=== PATIENT | male | born 1950 | race Caucasian/White ===

== ENCOUNTER 2019-07-08 22:29 | Emergency (ER) | payer MEDICARE ==
[~2019-07-08] VITALS: Ht 170.2 cm; Wt 108.9 kg
[~2019-07-08 22:29] MED LIST: ALLER-FEX180 MG PO; Diclofenac Pota50 MG PO; Flomax0.4 MG PO; LOW DOSE ASPIRI81 MG PO; Lovastatin20 MG PO; SILD25T PO; VALACYCLOVIR500 MG PO
== END 2019-07-08 23:37 | disposition home or self-care (01) ==
LOC: ER 22:29
DX: R33.9 Retention of urine, unspecified (principal)
CPT/HCPCS: 51702; 99283-25

== ENCOUNTER 2020-08-02 08:03 | Day surgery (SDC) | payer MEDICARE ==
[~2020-08-02] VITALS: Ht 170.2 cm; Wt 102.8 kg
[2020-08-02] MEDS ORDERED: CEPH250A (08:18)
== END 2020-08-02 09:53 | disposition home or self-care (01) ==
LOC: ORSCSDS 08:03
DX: Z12.11 Encounter for screening for malignant neoplasm of colon (principal); Z86.010 Personal history of colon polyps; D12.0 Benign neoplasm of cecum; D12.2 Benign neoplasm of ascending colon; D12.3 Benign neoplasm of transverse colon; K64.8 Other hemorrhoids; Z79.899 Other long term (current) drug therapy; Z79.82 Long term (current) use of aspirin
CPT/HCPCS: 88305; J2704; J7120

== ENCOUNTER → 2020-11-07 | Outpatient (CLI) | payer MEDICARE ==
[~2020-11-07] MED LIST changes: +CEPH250A; +REVATIO20 MG PO; -SILD25T PO
== END | disposition home or self-care (01) ==
LOC: LAB SHORT 17:30 → LAB 17:30
DX: R35.0 Frequency of micturition (principal); R39.15 Urgency of urination; R30.0 Dysuria
CPT/HCPCS: 87086

== ENCOUNTER 2021-04-06 05:59 | Emergency (ER) | payer MEDICARE ==
[~2021-04-06] VITALS: Ht 170.2 cm; Wt 104.3 kg
[2021-04-06 06:52] LABS: Source, Urine Catheter
[2021-04-06 07:06] LABS: Appearance, Urine Clear (Clear); Bilirubin, Urine Neg (Neg); Blood, Urine 1+ (Neg); Color, Urine Yellow (P-Yellow); Glucose Qualitative, Urine Neg (Neg); Ketones, Urine Neg (Neg); Leukocyte Esterase, Urine Neg (Neg); Nitrite, Urine Neg (Neg); Protein, Urine Neg (Neg); Urobilinogen, Urine NORM (Normal)
[2021-04-06 07:16] LABS: Bacteria Not Seen /hpf; Red Blood Cells, Urine 0-2 /hpf (0-2); Squamous Epithelial Cells Not Seen /hpf (Few); White Blood Cells, Urine Not Seen /hpf (0-5)
== END 2021-04-06 08:53 | disposition home or self-care (01) ==
LOC: ER 05:59
PROVIDERS: Emergency Medicine
DX: R33.9 Retention of urine, unspecified (principal)
CPT/HCPCS: 51702; 81001; 99283-25

== ENCOUNTER 2021-04-11 03:21 | Emergency (ER) | payer MEDICARE ==
[~2021-04-11] VITALS: Ht 170.2 cm; Wt 101.2 kg
[2021-04-11 04:45] LABS: Source, Urine Catheter
[2021-04-11 04:47] LABS: Bilirubin, Urine Neg (Neg); Blood, Urine 1+ (Neg); Glucose Qualitative, Urine Neg (Neg); Ketones, Urine Neg (Neg); Leukocyte Esterase, Urine Neg (Neg); Nitrite, Urine Neg (Neg); Protein, Urine Neg (Neg); Urobilinogen, Urine NORM (Normal)
[2021-04-11 04:56] LABS: Appearance, Urine Clear (Clear); Bacteria Few /hpf; Color, Urine Yellow (P-Yellow); Red Blood Cells, Urine 0-2 /hpf (0-2); Squamous Epithelial Cells Not Seen /hpf (Few); White Blood Cells, Urine 0-2 /hpf (0-5)
[2021-04-11] MEDS ORDERED: PHENA200 PO (05:34)
[2021-04-11] MEDS ORDERED: CIPR500 PO (05:34)
== END 2021-04-11 06:04 | disposition home or self-care (01) ==
LOC: ER 03:21
PROVIDERS: Emergency Medicine
DX: N40.1 Benign prostatic hyperplasia with lower urinary tract symptoms (principal); R33.8 Other retention of urine; R35.0 Frequency of micturition; R39.15 Urgency of urination; Z79.899 Other long term (current) drug therapy; Z79.82 Long term (current) use of aspirin
CPT/HCPCS: 51702; 51798; 81001; 99283-25; A9270

== ENCOUNTER 2021-09-13 09:12 | Day surgery (SDC) | payer MEDICARE ==
[~2021-09-13] VITALS: Ht 170.2 cm; Wt 100.6 kg
[~2021-09-13 09:12] MED LIST changes: +CIPR500 PO; +PHENA200 PO
[2021-09-13] MEDS ORDERED: ATOR40TA (10:17)
[2021-09-13] MEDS ORDERED: Prinivil10 MG PO (10:17)
--- NOTE | 2021-09-13 10:23 | NUR ---
09/13/21 1023 Ramos Bermudez TETRACAINE IN LEFT EYE PER ORDERS AT 1007 AND PLEDGET APPLIED AT 1008 PER ORDERS
== END 2021-09-13 11:54 | disposition home or self-care (01) ==
LOC: ORSCSDS 09:12
PROVIDERS: Ophthalmology
PROC: 08RK3JZ Replacement of Left Lens with Synthetic Substitute, Percutaneous Approach (ICD-10-PCS; principal; 2021-09-13 10:30)
DX: H25.12 Age-related nuclear cataract, left eye (principal); I10 Essential (primary) hypertension; I48.91 Unspecified atrial fibrillation; E78.5 Hyperlipidemia, unspecified; J45.909 Unspecified asthma, uncomplicated; Z79.82 Long term (current) use of aspirin; Z79.899 Other long term (current) drug therapy; E66.9 Obesity, unspecified; Z68.34 Body mass index [BMI] 34.0-34.9, adult
CPT/HCPCS: J2001; J2250; J3301; J7040; V2632

== ENCOUNTER 2021-10-04 09:15 | Day surgery (SDC) | payer MEDICARE ==
[~2021-10-04] VITALS: Ht 170.2 cm; Wt 100.9 kg
[~2021-10-04 09:15] MED LIST changes: +ATOR40TA; +Prinivil10 MG PO
--- NOTE | 2021-10-04 09:53 | NUR ---
10/04/21 0953 Pritesh Oh CALL LIGHT WITHIN REACH. EYE DROP AT 0946, PLEDGETT AT 0947
== END 2021-10-04 11:24 | disposition home or self-care (01) ==
LOC: ORSCSDS 09:15
PROVIDERS: Ophthalmology
PROC: 08RJ3JZ Replacement of Right Lens with Synthetic Substitute, Percutaneous Approach (ICD-10-PCS; principal; 2021-10-04 10:30)
DX: H25.11 Age-related nuclear cataract, right eye (principal); H21.81 Floppy iris syndrome; K21.9 Gastro-esophageal reflux disease without esophagitis; I10 Essential (primary) hypertension; E78.00 Pure hypercholesterolemia, unspecified; Z79.899 Other long term (current) drug therapy; E66.9 Obesity, unspecified; Z68.34 Body mass index [BMI] 34.0-34.9, adult; Z79.82 Long term (current) use of aspirin
CPT/HCPCS: J2001; J2250; J3010; J3301; J7040; V2632

== ENCOUNTER → 2022-08-12 | Outpatient (CLI) | payer MEDICARE | END | disposition home or self-care (01) | LOC: LAB 11:00 → LAB SHORT 11:00 | DX: J02.9 Acute pharyngitis, unspecified (principal) | CPT/HCPCS: 87081 ==